=== PATIENT | female | born 1995 | race Caucasian/White ===

== ENCOUNTER → 2024-09-24 14:36 | Outpatient (REF) | payer OTHER, SELFPAY | LOC: PNTC 14:36 | PROVIDERS: ATTENDING PHYSICIAN Student in an Organized Health Care Education/Training Program | DX: Z36.2 Encounter for other antenatal screening follow-up (principal) | CPT/HCPCS: 76805 ==

== ENCOUNTER 2025-02-13 00:48 | Inpatient (IN) | payer OTHER, SELFPAY ==
[2025-02-13 01:11] VITALS: BP 158/90; BMI 30.7
[2025-02-13] MEDS: LR 1000 IV (01:25)
[2025-02-13 01:34] LABS: % Basophils 0.6 % (0-2); % Eosinophils 1.4 % (0-6); % Immature Granulocytes 1.1 % (0-0.5); % Lymphocytes 17.6 % (20.5-51.1); % Monocytes 9.3 % (1.7-9.3); Absolute Basophils 0.1 10^3/uL (0-0.2); Absolute Eosinophils 0.1 10^3/uL (0-0.7); Absolute Immature Granulocytes 0.1 10^3/uL (0-0.05); Absolute Lymphocytes 1.6 10^3/uL (1.2-3.4); Absolute Monocytes 0.8 10^3/uL (0.1-0.6); Absolute Neutrophils 6.3 10^3/uL (1.4-6.5); Hematocrit 37.9 % (37.0-47.0); Hemoglobin 13.2 g/dL (12.0-16.0); Mean Corp Hgb Conc. 34.8 g/dL (33.0-37.0); Mean Corpuscular Hgb 31.6 pg (27.0-31.0); Mean Corpuscular Volume 90.7 fL (81.0-99.0); Mean Platelet Volume 9.9 fL (7.4-10.4); Nucleated Red Blood Cells % 0.4 %; Platelet Count 171 10^3/uL (130-400); Red Blood Cell Count 4.18 10^6/uL (4.20-5.40); Red Cell Dist. Width 14.7 % (11.5-14.5)
[2025-02-13 01:47] LABS: ALT (SGPT) 18 U/L (0-35); AST (SGOT) 31 U/L (14-36); Albumin 3.6 g/dl (3.5-5.0); Alkaline Phosphatase 168 U/L (38-126); Blood Urea Nitrogen 16 mg/dl (7-17); Calcium 10.1 mg/dl (8.4-10.2); Carbon Dioxide 20 mmol/L (22-30); Chloride 110 mmol/L (98-107); Estimated Creatinine Clearance > 125 ml/min; Glucose 87 mg/dl (70-99); Potassium 4.2 mmol/L (3.5-5.1); Sodium 138 mmol/L (135-145); Total Bilirubin 0.4 mg/dl (0.2-1.3); Total Protein 6.4 g/dl (6.3-8.2); eGFR > 60.00
[2025-02-13] MEDS: TYLENOL 1000 MG PO (03:22)
[2025-02-13] MEDS: BICITRA 30 ML PO (03:22)
--- NOTE | 2025-02-13 03:31 | DOWNTIME ---
There was a [facility] Client Clinical Pharmacy Manager Downtime on 02/13/2025 from 0200 to 02/14/2024 at 0318 . Downtime documentation of patient's care, including medication administrations, has been reconciled in the electronic record per guidelines. Refer to the
patient's paper chart under the miscellaneous tab to see printed paper medication records and downtime forms.
[2025-02-13] MEDS: ANCEF 10 IV (03:40)
[2025-02-13 04:03] LABS: Cord ABG Comment CORD BLOOD
[2025-02-13 04:04] LABS: B.E. Cord ABG -5.6 mMOL/L; HCO3 Cord ABG 21.6 mmol/L; O2 Saturation % Cord ABG 57.4 %; PCO2 Cord ABG 47 mmHg; PO2 Cord ABG 25 mmHg; pH Cord ABG 7.27
[2025-02-13 04:07] LABS: B.E. Cord ABG -6.3 mMOL/L; HCO3 Cord ABG 24.2 mmol/L; O2 Saturation % Cord ABG 11.1 %; PCO2 Cord ABG 68 mmHg; PO2 Cord ABG < 6 mmHg; pH Cord ABG 7.16
[2025-02-13] MEDS: PITOCIN 30 UNITS/NSS 500 ML IV (04:30)
[2025-02-13] MEDS: PRENATAL PLUS 1 TABLET PO (09:56)
[2025-02-13] MEDS: TORADOL 15 MG IV ×3 (09:56→22:02)
[2025-02-13] MEDS: SENOKOT-S 1 TABLET PO (09:57)
[2025-02-13] MEDS: MYLICON 80 MG PO (09:57)
[2025-02-14] MEDS: TORADOL 15 MG IV (04:13)
[2025-02-14 05:27] LABS: Hematocrit 29.6 % (37.0-47.0); Hemoglobin 10.2 g/dL (12.0-16.0); Mean Corp Hgb Conc. 34.5 g/dL (33.0-37.0); Mean Corpuscular Volume 92.8 fL (81.0-99.0); Mean Platelet Volume 9.9 fL (7.4-10.4); Platelet Count 155 10^3/uL (130-400); Red Blood Cell Count 3.19 10^6/uL (4.20-5.40); Red Cell Dist. Width 14.9 % (11.5-14.5); White Blood Cell Count 11.5 10^3/uL (4.8-10.8)
--- NOTE | 2025-02-14 07:41 | W.PN.ANS.POP ---
Anesthesia Post Operative
- Anesthesia Post Op Note
Vital Signs Stable-See Nursing Note: Yes
Airway Patent: Yes
Adequate Pain Control: Yes
Change in Mental Status: No
Current Postoperative Nausea & Vomiting: No
Anesthesia Complications: No
General Anesthetic Recall: No (n/a)
Unplanned Admission: No
Post Op Hydration Adequate: Yes
[2025-02-14] MEDS: SENOKOT-S 1 TABLET PO (07:49)
[2025-02-14] MEDS: PRENATAL PLUS 1 TABLET PO (07:50)
[2025-02-14] MEDS: MYLICON 80 MG PO (07:50)
[2025-02-14] MEDS: TYLENOL 650 MG PO ×3 (10:28→23:19)
[2025-02-14] MEDS: FEOSOL 325 MG PO (10:28)
[2025-02-14] MEDS: MOTRIN 600 MG PO ×3 (10:29→23:19)
[2025-02-15] MEDS: TYLENOL 650 MG PO ×3 (05:29→18:42)
[2025-02-15] MEDS: MOTRIN 600 MG PO ×3 (05:29→18:42)
[2025-02-15] MEDS: SENOKOT-S 1 TABLET PO (08:05)
[2025-02-15] MEDS: PRENATAL PLUS 1 TABLET PO (08:05)
[2025-02-15] MEDS: FEOSOL 325 MG PO (08:05)
[2025-02-16] MEDS: MOTRIN 600 MG PO ×2 (01:25→08:32)
[2025-02-16] MEDS: PRENATAL PLUS 1 TABLET PO (08:32)
[2025-02-16] MEDS: SENOKOT-S 1 TABLET PO (08:32)
[2025-02-16] MEDS: FEOSOL 325 MG PO (08:32)
[2025-02-16] MEDS: PROCARDIA XL (EXTENDED RELEASE) 30 MG PO (11:36)
[2025-02-16 13:51] LABS: Protein/creatinine Ratio 1.5; Urine Protein 23 mg/dl
--- NOTE | 2025-02-16 15:18 | W.DS.TRANS ---
DC Summary - Database Design Analyst
-
Discharge Instructions:
Discharge Diagnosis/Procedures delivered by csection; labor,
nonreassuring FHT, spinal anesthesia;
preeclampsia without severe features
Diet Regular
Activity No strenuous activity
Driving Restrictions No driving for 2 weeks
Bathing Restrictions OK to Shower
Instructions:
Stand-Alone Forms: LDRP Delivery
LDRP Hypertensive Disorders
Changes to Home Medications: No
Discharge Medications:
DC Medications w/original date entered in [facility]
cetirizine 10 mg tablet (Zyrtec) 10 mg PO DAILY 02/13/25
prenat.vits,rama,pwy-qffp-btllm 1 tab PO DAILY 02/13/25
acetaminophen 325 mg tablet 650 mg (2 x 325 mg) PO Q4HPRN PRN mild pain #0 tabs 02/15/25
ferrous sulfate 325 mg (65 mg iron) tablet (FeroSul) 325 mg PO DAILY #0 tabs 02/15/25
ibuprofen 600 mg tablet 600 mg PO Q6HPRN PRN cramps #0 tabs 02/15/25
nifedipine 30 mg tablet,extended release 30 mg PO DAILY #30 tabs 02/16/25
Home Medication Changes
Pending Results: Yes
Additional Pending Results:
placental pathology
Total time spent discharging patient (in min): 30
== END 2025-02-16 15:38 | disposition home or self-care (01) | DRG 788 ==
LOC: LDRP 00:48
PROVIDERS: Obstetrics & Gynecology; ADMITTING PHYSICIAN Obstetrics & Gynecology
PROC: 10D00Z1 Extraction of Products of Conception, Low, Open Approach (ICD-10-PCS; 2025-02-13)
DX: O76 Abnormality in fetal heart rate and rhythm complicating labor and delivery (principal); O69.81X0 Labor and delivery complicated by cord around neck, without compression, not applicable or unspecified; O14.04 Mild to moderate pre-eclampsia, complicating childbirth; Z3A.40 40 weeks gestation of pregnancy; Z37.0 Single live birth
CPT/HCPCS: 88307; 36415; 80053; 82570; 82803; 84156; 85025; 85027; 86780; 86850; 86900; 86901

== ENCOUNTER → 2025-10-01 08:56 | Outpatient (REF) | payer OTHER, SELFPAY | LOC: WDC 08:56 | PROVIDERS: ATTENDING PHYSICIAN Obstetrics & Gynecology | DX: O91.13 Abscess of breast associated with lactation (principal) | CPT/HCPCS: 76642 ==